=== PATIENT | male | born 1955 | race Caucasian/White ===

== ENCOUNTER 2024-01-21 15:25 | Emergency (ER) | payer OTHER, SELFPAY ==
[2024-01-21 15:28] VITALS: BP 138/76; PULSE 57; RESP 16; TEMP 36.4; O2SAT 100; BMI 29.0
[2024-01-21 16:31] LABS: Bacteria Urine Occasional (0-1); Culture Indicated Urine Cult Not Indicated; RBC Urine 1-5/HPF (0-5/HPF); Squamous Epithelial Cell Urine 0-1 /HPF (0-5/HPF); Urine Volume 10mL (spun); WBC Urine 0-1/HPF (0-5/HPF)
[2024-01-21 18:00] VITALS: BP 138/70; PULSE 53; RESP 18; O2SAT 100
[2024-01-21 18:30] LABS: Add Manual Diff / Slide Review NO; Basophils Absolute Auto 0 /uL (0-100); Basophils Percent Auto 0.4 % (0-2); Eosinophils Absolute Auto 0 /uL (0-450); Eosinophils Percent Auto 0.5 % (2-4); Hematocrit 49.3 % (41-53); Hemoglobin 17.1 g/dL (13.5-17.5); Lymphocytes Absolute Auto 1200 /uL (1100-4500); Lymphocytes Percent Auto 11.9 % (25-40); Mean Corpuscular HGB Conc 34.7 % (30-36); Mean Corpuscular Hemoglobin 32.3 PG (26-34); Mean Corpuscular Volume 93.1 fL (80-100); Monocytes Absolute Auto 600 /uL (0-900); Monocytes Percent Auto 5.7 % (3-14); Neutrophils Absolute Auto 8000 /uL (1500-7000); Neutrophils Percent Auto 81.5 % (50-75); Platelet Count 186 X10^3/uL (150-400); Red Cell Distribution Width 13.4 % (11.6-14.8); White Blood Cell Count 9.8 X10^3/uL (4.5-11.0)
[2024-01-21 18:40] LABS: BUN Creatinine Ratio 26.3 (6-22); Blood Urea Nitrogen 31 mg/dL (9-20); Calcium 9.1 mg/dL (8.4-10.2); Carbon Dioxide 27 mmol/L (22-32); Chloride 104 mmol/L (98-107); Estimated Glomerular Filt Rate > 60 mL/min (>60); Glucose 109 mg/dL (80-110); HEMOLYSIS < 15 (0-50); Potassium 4.6 mmol/L (3.4-5.1); Sodium 139 mmol/L (137-145)
--- NOTE | 2024-01-21 18:40 | ED.GENADULT ---
HPI - General Adult General Chief complaint: Urogenital-Male Stated complaint: Kidney stone sent by [facility] Time Seen by Provider: 01/21/24 18:03 Source: patient Mode of arrival: Ambulatory History of Present Illness HPI narrative: Patient is a 68-year-old male who came from the walk-in clinic for evaluation of discomfort on his left side of his abdomen. He states that it does feel somewhat similar to a prior diagnosis a ureteral stone approximately 6 weeks ago. Six weeks ago he was in origin. He states he had a sudden onset of left-sided pain. Prior to that he had never had a kidney stone. He stated that he went to the emergency department. Had a CT scan. Was told that he had a 4 mm stone in his bladder at the time. He was also told about a calcification in his right lower quadrant. He states he never felt like he passed the stone that was in his bladder although he did not have much discomfort. He did follow-up with his primary doctor about the calcification. Had a CT scan with contrast per his report. Was told that there was no calcification on that CT scan. He reports today for pain in the left side of his abdomen. He states it was not as bad today as what it was prior. Today felt somewhat different as it did not radiate to the front of his abdomen to his groin. By the time I evaluated the patient states the pain is much improved. No fevers. No problems urinating. No change in bowel habits. No skin rashes. Related Data Allergies Allergy/AdvReac Type Severity Reaction Status Date / Time No Known Drug Allergies Allergy Verified 01/21/24 15:28 Review of Systems Review of Systems Narrative: See HPI Patient History Social History Smoking Status: Never smoker Smoking Status: Never smoker alcohol intake frequency: holidays/special occasions only Substance Use Type: does not use Exam Initial Vital Signs Initial Vital Signs: Vital Signs Temperature 97.6 F 01/21/24 15:28 Pulse Rate 57 L 01/21/24 15:28 Respiratory Rate 16 01/21/24 15:28 Blood Pressure 138/76 01/21/24 15:28 Pulse Oximetry 100 01/21/24 15:28 Oxygen Delivery Method Room Air 01/21/24 15:28 Const General: cooperative, comfortable and No ill appearing HENMT Head: normal to inspection and normocephalic Resp Effort & Inspection: normal respiratory effort Cardio Rate: regular rate Back/Spine/Pelvis Back: No CVA tenderness Skin General: no rashes or lesions noted Neuro General: patient alert, patient awake and moves all extremities Extrem General: capillary refill normal Course Orders Ordered: ED Orders 01/21/24 18:12 Basic Metabolic Panel Stat Complete Blood Count AUTO DIFF Stat 01/21/24 18:41 CT kidney ureter bladder (KUB) Stat Discontinued Medications Ondansetron HCl (Ondansetron 4 Mg/2 Ml Inj) 4 mg IV NOW PRN PRN Reason: Nausea And Vomiting Ondansetron HCl (Ondansetron 4 Mg Odt) 4 mg SL NOW PRN PRN Reason: Nausea And Vomiting Vital Signs Vital signs: Vital Signs - 8 hr 01/21/24 18:00 01/21/24 19:00 01/21/24 20:31 Pulse Rate 53 L 53 L 58 L Respiratory Rate 18 16 18 Blood Pressure 138/70 136/73 139/77 Pulse Oximetry 100 98 99 Oxygen Delivery Method Room Air Medical Decision Making Lab Data Lab results reviewed: Yes I reviewed the patient's lab results. 01/21/24 18:12 01/21/24 18:12 Labs: Lab Results 01/21/24 01/21/24 Range/Units 15:47 18:12 WBC 9.8 (4.5-11.0) X10^3/uL RBC 5.30 (4.5-5.9) X10^6/uL Hgb 17.1 (13.5-17.5) g/dL Hct 49.3 (41-53) % MCV 93.1 (80-100) fL MCH 32.3 (26-34) PG MCHC 34.7 (30-36) % RDW 13.4 (11.6-14.8) % Plt Count 186 (150-400) X10^3/uL Neut % (Auto) 81.5 H (50-75) % Lymph % (Auto) 11.9 L (25-40) % [place] % (Auto) 5.7 (3-14) % Eos % (Auto) 0.5 L (2-4) % Baso % (Auto) 0.4 (0-2) % Neut # (Auto) 8000 H (4364-4535) /uL Lymph # (Auto) 1200 (1588-6100) /uL [place] # (Auto) 600 (0-900) /uL Eos # (Auto) 0 (0-450) /uL Baso # (Auto) 0 (0-100) /uL Sodium 139 (137-145) mmol/L Potassium 4.6 (3.4-5.1) mmol/L Chloride 104 (98-107) mmol/L Carbon Dioxide 27 (22-32) mmol/L BUN 31 H (9-20) mg/dL Creatinine 1.18 (0.66-1.25) mg/dL Estimated GFR > 60 (>60) mL/min BUN/Creatinine Ratio 26.3 H (6-22) Glucose 109 (80-110) mg/dL Calcium 9.1 (8.4-10.2) mg/dL Urine RBC 1-5/hpf (0-5/HPF) Urine WBC 0-1/hpf (0-5/HPF) Ur Squamous Epith Cells 0-1 /hpf (0-5/HPF) Urine Bacteria Occasional (0-1) (None) Ur Culture Indicated? Cult not indicated Vol Urine Centrifuged 10ml (spun) Urine Dip Bedside Urine Glucose Negative Bedside Urine Bilirubin - Negative Bedside Urine Ketone - Negative Urine Specific [place] 1.025 Bedside Urine Occult Blood +++ Bedside Urine pH 6 Bedside Urine Protein - Negative Bedside Urine Urobilinogen - Negative Bedside Urine Nitrite - Negative Bedside Urine Leukocytes - Negative Esterase Point of care testing: Urine Dip Bedside Urine Glucose Negative Bedside Urine Bilirubin - Negative Bedside Urine Ketone - Negative Urine Specific [place] 1.025 Bedside Urine Occult Blood +++ Bedside Urine pH 6 Bedside Urine Protein - Negative Bedside Urine Urobilinogen - Negative Bedside Urine Nitrite - Negative Bedside Urine Leukocytes - Negative Esterase Imaging Data CT scan - abdomen/pelvis: Radiologist's Impression: PROCEDURE: CT KIDNEY URETER BLADDER (KUB) INDICATIONS: possible Left sided stone TECHNIQUE: Axial sections were acquired from the lung bases to the pubic symphysis. Coronal and sagittal reformats were performed. For radiation dose reduction, the following was used: automated exposure control, adjustment of mA and/or kV according to patient size. COMPARISON: None. FINDINGS: Image quality: Diagnostic Lower chest: Basal scarring or atelectasis. Small hiatal hernia and mildly patulous distal esophagus. There are coronary calcifications. Liver: Solid organs are not well assessed without IV contrast. No contour deforming mass. Possible cyst is present in the medial right lobe. Gallbladder and biliary system: Unremarkable, nondilated. There might be a small gallstones versus sludge. Pancreas: No ductal dilation Spleen: Nonenlarged Adrenals: No discrete nodules Kidneys: No contour deforming solid mass. There is mild left hydronephrosis. 4 mm left UVJ stone is present. Suspected small cysts are present. No significant calcifications on the right. Vessels and lymph nodes: No abdominal aortic aneurysm or pathologic lymph nodes by size criteria. Bowel and peritoneum: No evidence of small bowel obstruction. No pathologic ascites. Colonic diverticula are present Body wall: Unremarkable Pelvis: Curvilinear dystrophic calcification is seen in the right lower quadrant. The appendix appears nondilated. Punctate calcification anterior to the bladder is seen. Prostate is not well evaluated on this study Bones: There are degenerative changes. No acute or suspicious osseous finding IMPRESSION: 4 mm obstructing left UVJ stone with mild upstream hydronephrosis. Probably chronic curvilinear dystrophic calcification in the right lower quadrant, appearing separate from the appendix. This is of uncertain etiology, consider follow-up if there is any primary history of malignancy. Other findings above. MDM Narrative Medical decision making narrative: Distal left ureteral stone. Kidney functions unremarkable. No signs of urinary tract infection. Once again the calcification in his right abdomen was seen and I did discuss this with him. Informed him that he does need to follow-up with his primary doctor. No indication for admission to the hospital. Pain is controlled. He does have nausea and pain medication with him from his prior kidney stone episode. He was given return precautions and follow-up instructions. He expressed understanding and agreement. Discharge Plan Departure Patient Disposition: Home Clinical Impression: Left ureteral stone Instructions: DI for Kidney Stones Activity Restrictions/Additional Instructions: Take your pain medication and nausea medication as needed. Return to the emergency department for pain that has not controlled, nausea that has not controlled or fevers. Contact your primary care doctor for follow-up. Referrals: Miscellaneous,MD [facility] [Primary Care Provider] - Stand Alone Forms: Patient Portal/API
[2024-01-21 19:00] VITALS: BP 136/73; PULSE 53; RESP 16; O2SAT 98
[2024-01-21 20:31] VITALS: BP 139/77; PULSE 58; RESP 18; O2SAT 99
== END 2024-01-21 20:34 | disposition home or self-care (01) ==
PROVIDERS: Emergency Medicine; Emergency Provider Emergency Medicine
DX: N20.1 Calculus of ureter (principal)
CPT/HCPCS: 36415; 74176; 80048; 81003; 81015; 85025; 99283; 99284